=== PATIENT | female | born 1960 | race Caucasian/White ===

== ENCOUNTER 2017-04-28 19:55 | Emergency (ER) | payer MEDICAID ==
[~2017-04-28] VITALS: Ht 152.4 cm; Wt 49.1 kg
[~2017-04-28 19:55] MED LIST: lorazepam; meclizine; zofran
[2017-04-28 20:27] VITALS: BP 154/85
== END 2017-04-29 00:40 | disposition left against medical advice (07) ==
LOC: ER 19:55
DX: M79.622 Pain in left upper arm (principal); Z53.21 Procedure and treatment not carried out due to patient leaving prior to being seen by health care provider